=== PATIENT | male | born 1955 | race Caucasian/White ===

== ENCOUNTER 2016-07-19 08:00 | Emergency (ER) | payer OTHER ==
[~2016-07-19 08:00] MED LIST: ASA CHILDREN'S81 MG PO; BACTRIM DS DPS1 TAB PO; CARVEDILOL25 MG PO; FLOMAX DPS0.4 MG PO; GLUTOSE 1537.5 GM PO; LEVEMIR100 UNIT/1 SQ; MAALOX DPS30 ML PO; NORVASC DPS10 MG PO; NOVOLOG100 UNIT/2 SQ; SURFAK DPS240 MG PO; TYLENOL DPS325 MG PO
--- NOTE | 2016-07-19 16:41 | ER ---
ADMIT: 07/19/2016 RM/LOC: ER [facility] MR#: [id number] [address] [facility] [id number] [place], [place] [id number] PAUL REYEZ [address] [address] Emergency Room Report SEX: M AGE: 61 : 1955 DATE: 07/19/2016 ADDENDUM: A 61-year-old, diabetic coming in with nausea, vomiting, and little bit of abdominal pain but mainly his mouth is sore. His hemoglobin A1c is 13. Blood sugar here is 234. I think this is all thrush in his mouth. He is probably little dehydrated from running high blood sugars. At this time, I refer him to Dr. Maguire for his diabetes. I gave him 2 Diflucan pills daily and then some Mycostatin lozenge/omari 2 p.o. q in the mouth that dissolve q.i.d. time about 3-4 days. He is to clear this up, so advised and understands. CONDITION ON DISCHARGE: Fair. Vinny Medrano MD/ maria luisa JOB #: [id number] CC: Vinny Medrano MD, Attending Physician UNKNOWN, Family Physician
== END 2016-07-19 11:15 | disposition home or self-care (01) ==
LOC: ER 08:00
DX: E86.0 Dehydration (principal); B37.0 Candidal stomatitis; E11.9 Type 2 diabetes mellitus without complications; I25.10 Atherosclerotic heart disease of native coronary artery without angina pectoris; F17.210 Nicotine dependence, cigarettes, uncomplicated; Z79.82 Long term (current) use of aspirin